=== PATIENT | female | born 1940 | race Hispanic/Latino ===

== ENCOUNTER 2018-09-19 00:32 | Emergency (ER) | payer OTHER ==
[2018-09-19 01:45] LABS: BASOPHILS % (AUTO) 0.7 % (0.0-5.0); EOSINOPHILS % (AUTO) 0.8 % (0.0-8.0); HEMATOCRIT 40.9 % (36-48); LYMPHOCYTES % (AUTO) 22.4 % (21.0-51.0); MEAN CORPUSCULAR HEMOGLOBIN 32.6 pg (27.0-33.0); MEAN CORPUSCULAR HGB CONC 34.4 g/dL (32.0-36.0); MEAN CORPUSCULAR VOLUME 94.9 fL (79-99); MONOCYTES % (AUTO) 7.8 % (3.0-13.0); NEUTROPHILS % (AUTO) 68.3 % (40.0-77.0); NUCLEATED RED BLOOD CELLS 0.1 % (0.0-0.19); PLATELET COUNT (AUTO) 212 K/uL (130-400); RED BLOOD CELL COUNT(AUTO) 4.32 MIL/uL (4.00-5.50); WHITE BLOOD COUNT (AUTO) 8.8 K/uL (4.8-10.8)
[2018-09-19 01:56] LABS: CREATININE 0.9 mg/dL (0.5-1.5); POTASSIUM 4.2 mmol/L (3.5-5.1)
[2018-09-19 02:01] LABS: ALBUMIN 3.8 g/dL (3.5-5.0); BILIRUBIN,TOTAL 0.6 mg/dL (0.2-1.0); TOTAL PROTEIN, SERUM 7.4 g/dL (6.0-8.3)
[2018-09-19 02:20] LABS: BILIRUBIN,URINE Negative (NEGATIVE); COLOR,URINE Yellow (YELLOW); GLUCOSE, URINE (UA) Negative (NEGATIVE); KETONES,URINE Negative (NEGATIVE); LEUKOCYTE ESTERASE ,URINE Negative (NEGATIVE); NITRATE,URINE Negative (NEGATIVE); OCCULT BLOOD,URINE Negative (NEGATIVE); PH,URINE 7.5 (5.0-8.0); PROTEIN,URINE Negative (NEGATIVE); UROBILINOGEN,URINE 0.2 mg/dL (0.2-1.0)
[2018-09-19 02:30] LABS: APPEARANCE,URINE CLEAR (CLEAR)
== END 2018-09-19 05:16 | disposition home or self-care (01) ==
LOC: EDH 00:32
DX: R11.0 Nausea (principal); E78.5 Hyperlipidemia, unspecified; I10 Essential (primary) hypertension
CPT/HCPCS: 36415; 74177; 80053; 81003; 82550; 83690; 84484; 85025; 93005

== ENCOUNTER → 2019-10-11 | Outpatient (CLI) | payer OTHER | END | disposition home or self-care (01) | LOC: SHCH 14:15 | PROVIDERS: ATTEND Internal Medicine Cardiovascular Disease | DX: I65.22 Occlusion and stenosis of left carotid artery (principal) | CPT/HCPCS: 93880 ==

== ENCOUNTER → 2019-10-14 | Outpatient (CLI) | payer OTHER ==
[~2019-10-14] MED LIST: REGADENOSON 0.4 MG/5 ML PF SYG IVP SCH
== END | disposition home or self-care (01) ==
LOC: SHCH 08:38
PROVIDERS: ATTEND Internal Medicine Cardiovascular Disease
DX: I10 Essential (primary) hypertension (principal); R07.9 Chest pain, unspecified
CPT/HCPCS: 78452; 93017; 96374; A9500 ×2; J2785

== ENCOUNTER → 2021-12-30 | Outpatient (CLI) | payer OTHER ==
[2021-12-30 12:51] LABS: BILIRUBIN,TOTAL 0.5 mg/dL (0.2-1.0); CREATININE 1.2 mg/dL (0.5-1.5); POTASSIUM 3.9 mmol/L (3.5-5.1)
[2021-12-30 12:52] LABS: ALBUMIN 3.5 g/dL (3.5-5.0); TOTAL PROTEIN, SERUM 6.6 g/dL (6.0-8.3)
== END | disposition home or self-care (01) ==
LOC: LAB 08:27
PROVIDERS: ATTEND Internal Medicine Cardiovascular Disease
DX: I10 Essential (primary) hypertension (principal); E78.5 Hyperlipidemia, unspecified; I25.10 Atherosclerotic heart disease of native coronary artery without angina pectoris
CPT/HCPCS: 36415; 80053; 80061

== ENCOUNTER 2024-12-18 09:18 | Emergency (ER) | payer OTHER ==
[~2024-12-18] VITALS: Ht 157.5 cm; Wt 54.0 kg
[~2024-12-18 09:18] MED LIST changes: +ATOR40TA69 PO; +CARV12.580 PO; +EZET10TA48 PO; +LISI40TA9 PO; -REGADENOSON 0.4 MG/5 ML PF SYG IVP SCH
--- NOTE | 2024-12-18 09:18 | NUR ---
TRAUMA LEVEL 2 Addendum: 12/18/24 at 1325 by EPIGLERGUE SEE PAPER DOCUMENTATION
--- NOTE | 2024-12-18 09:42 | ERN ---
General Chief Complaint: Multiple Trauma/Fall Stated Complaint: TRAUMA Time Seen by MD: 09:19 History of Present Illness Initial Comments 84-year-old female who presents for a fall. Brought in by EMS from home. According to EMS, the family heard the patient get up this morning and heard her fall in her room. They found her altered on arrival. EMS reports that the patient had decreased mentation on their arrival on signs of a head injury. Throughout the transport the patient is GCS is improved. On arrival here she has a GCS of 14, she has some blood/bruising to the right side of the head. She denies any complaints at this time but she is unsure what happened. She has stable vital signs. Allergies: Coded Allergies: No Known Drug Allergies (Verified Allergy, 10/12/12) Home Meds Reported Medications Latanoprost (Latanoprost) 0.005 % Drops, 1 DROP OP HS, ML 0 Refills 12/18/24 Carvedilol (Coreg) 12.5 Mg Tablet, 12.5 MG PO BID, TAB 07/05/24 Lisinopril (Lisinopril) 40 Mg Tablet, 1 TAB PO DAILY for 30 Days, #30 TAB 0 Refills 07/05/24 Discontinued Reported Medications Ezetimibe (Ezetimibe) 10 Mg Tablet, 10 MG PO AM, TAB 07/05/24 Discontinued Scripts Atorvastatin Calcium (LIPITOR) 40 Mg Tablet, 40 MG PO HS, #30 TAB 1 Refill Prov:FAUSTINO ARAUJO 07/06/24 Past Medical History Past Medical History: High Cholesterol, Hypertension Past Surgical History: Other Results Laboratory and Microbiology Lab and Micro Result Laboratory Tests Test 12/18/24 09:58 12/18/24 10:49 White Blood Count 8.7 K/uL (4.8-10.8) Red Blood Count 4.54 MIL/uL (4.00-5.50) Hemoglobin 14.6 g/dL (12.0-16.0) Hematocrit 43.7 % (36-48) Mean Corpuscular Volume 96.3 fL (79-99) Mean Corpuscular Hemoglobin 32.2 pg (27.0-33.0) Mean Corpuscular Hemoglobin Concent 33.4 g/dL (32.0-36.0) Red Cell Distribution Width 13.7 % (11.0-15.5) Platelet Count 161 K/uL (130-400) Mean Platelet Volume 11.8 fL (7.5-10.5) H Immature Granulocyte % (Auto) 0.3 % (0-1) Neutrophils (%) (Auto) 75.0 % (40.0-77.0) Lymphocytes (%) (Auto) 17.8 % (21.0-51.0) L Monocytes (%) (Auto) 5.5 % (3.0-13.0) Eosinophils (%) (Auto) 0.6 % (0.0-8.0) Basophils (%) (Auto) 0.8 % (0.0-5.0) Neutrophils # (Auto) 6.5 K/uL (1.8-7.7) Lymphocytes # (Auto) 1.6 K/uL (1.0-4.8) Monocytes # (Auto) 0.5 K/uL (0.1-1.0) Eosinophils # (Auto) 0.05 K/uL (0.00-0.70) Basophils # (Auto) 0.07 K/uL (0.00-0.20) Absolute Immature Granulocyte (auto 0.03 K/uL (0-1) Nucleated Red Blood Cells 0.0 % (0.0-0.19) Prothrombin Time 10.9 SEC (9.6-11.6) Prothromb Time International Ratio 1.03 (0.85-1.15) Activated Partial Thromboplast Time 22.5 SEC (26.3-35.5) L Sodium Level 132 mmol/L (136-145) L Potassium Level 4.6 mmol/L (3.5-5.1) Chloride Level 100 mmol/L (101-111) L Carbon Dioxide Level 25 mmol/L (21-32) Blood Urea Nitrogen 22 mg/dL (7-18) H Creatinine 1.1 mg/dL (0.5-1.0) H Glomerular Filtration Rate Calc 49 mL/min (>90) Random Glucose 374 mg/dL (70-105) H Total Calcium 9.4 mg/dL (8.5-10.1) Magnesium Level 2.00 mg/dL (1.80-2.40) Total Creatine Kinase 44 U/L (21-232) # Troponin I High Sensitivity 14.8 ng/L (4-50) Serum Alcohol < 3 mg/dL (0-10) Urine Color YELLOW (YELLOW) Urine Appearance CLOUDY (CLEAR) H Urine pH 7.5 (5.0-8.0) Urine Specific [place] 1.030 (1.001-1.031) Urine Protein TRACE mg/dL (NEGATIVE) H Urine Glucose (UA) >=1000 mg/dL (NEGATIVE) H Urine Ketones NEGATIVE mg/dL (NEGATIVE) Urine Occult Blood SMALL (NEGATIVE) H Urine Nitrate NEGATIVE (NEGATIVE) Urine Bilirubin NEGATIVE mg/dL (NEGATIVE) Urine Urobilinogen 0.2 mg/dL (0.2-1.0) Urine Leukocyte Esterase TRACE Demetria/uL (NEGATIVE) H Urine RBC 26-50 /HPF (0-1) H Urine WBC 26-50 /HPF (0-1) H Urine Squamous Epithelial Cells MANY /HPF (0-2) Urine Non-Squamous Epithelial Cells 2 /HPF (0-2) Urine Bacteria MANY /HPF (None Seen) Urine Yeast RARE /HPF (None Seen) Urine Opiates Screen NEGATIVE (NEGATIVE) Urine Barbiturates Screen NEGATIVE (NEGATIVE) Urine Phencyclidine Screen NEGATIVE (NEGATIVE) Urine Amphetamines Screen NEGATIVE (NEGATIVE) Urine Benzodiazepines Screen NEGATIVE (NEGATIVE) Urine Cocaine Screen NEGATIVE (NEGATIVE) Urine Marijuana (THC) Screen NEGATIVE (NEGATIVE) MDM CC: Fall at home, possible head injury Historian: Patient and EMS. Patient is a bit confused and providing an unreliable history. I gathered the history from the EMS and the patient's daughter at bedside. No limitations by social determinants of health Comorbidities include advanced age, dyslipidemia, hypertension, known liver mass Differential diagnosis includes fall, multisystem trauma, head injury, bleed, stroke, electrolyte abnormality, sepsis, other. Initial vital signs show hypertension, stable otherwise. Patient did come and has a trauma alert due to the altered mentation and head injury. Initial airway breathing circulation intact. Taken to the CT scanner. I independently interpreted the CT head without contrast in the CT cervical spine. No obvious fractures. I independently interpreted the CT chest abdomen and pelvis. There was no obvious trauma. On re-evaluation of the patient, a patient that appears to be having neurologic deficits. She appears to have luci-neglect to the right side. NIHSS of five. Moving both limbs. Answering questions appropriately but slow. No aphasia. Patient is not a TNK candidate because of the last known well time was bedtime last night over 12 hours ago. I started to coordinate transfer at 10:45 a.m.. Possibly a large vessel occlusion, I discussed case w/ [place]aly [place] [facility] will [place] patient there and get CTAs for further eval EKG: Sinus rhythm rate of 81 normal axis delayed R-wave progression intervals are stable no STEMI. Independently interpreted by me. The labs are stable. Coags stable. Electrolytes are stable. Glucose 374. Troponin CK normal. Alcohol negative. Treatment in ED: Hydralazine 20 mg for hypertension. Consultation: [facility] [place]aly, accepts patient. He'll get CTAs and consult neuro/neuro IR as needed. ED Course Orders Procedure Category Date Status Time Ct Head/Brain W/O CT 12/18/24 Resulted Contrast 09:21 Ct Cervical Spine W/O CT 12/18/24 Resulted Contrast 09:21 Ct Chest/Abd/Pelv CT 12/18/24 Resulted W/Conrast 09:21 Cardiac Panel LAB 12/18/24 Complete 09:30 Cbc With Differential LAB 12/18/24 Complete 09:30 Basic Metabolic Panel LAB 12/18/24 Complete 09:30 Magnesium LAB 12/18/24 Complete 09:30 Prothrombin Time With LAB 12/18/24 Complete INR 09:30 Partial LAB 12/18/24 Complete Thromboplastin Time 09:30 Urinalysis Profile LAB 12/18/24 Complete 09:30 Drug Screen Urine LAB 12/18/24 Complete 09:30 Alcohol, Blood LAB 12/18/24 Complete 09:30 Iohexol (Omnipaque) PHA 12/18/24 Complete 09:44 12 Lead Ekg Tracing- EKG 12/18/24 Logged Technical 09:48 Hydralazine 20mg Inj PHA 12/18/24 Complete (Apresoline 20mg In 11:00 Culture Urine YUNIEL 12/18/24 In Process 11:23 Iohexol (Omnipaque) PHA 12/18/24 Complete 11:29 Current Medications Medications (Trade) Dose Ordered Sig/Erinn Route PRN Reason Start Time Stop Time Status Last Admin Dose Admin Hydralazine HCl (APRESOLine 20MG INJ) 20 mg ONCE ONCE IV 12/18/24 11:00 12/18/24 11:01 DC 12/18/24 11:25 Iohexol (Omnipaque) 75 ml STK-MED ONCE IV 12/18/24 11:29 12/18/24 11:29 DC Iohexol (Omnipaque) 35,000 mg STK-MED ONCE IV 12/18/24 09:44 12/18/24 09:44 DC DX & DISP Disposition: Transfer Departure Impression: Primary Impression: Hypertension Additional Impressions: Fall at home, Stroke, Hyperglycemia Critical Time: 30 minutes (Critical Care Procedure NoteAuthorized and Performed by: meTotal critical care time: Approximately 36 minutesDue to a high probability of clinically significant, life threatening deterioration, the patient required my highest level of preparedness to intervene emergently and I personally spent this critical care time directly and personally managing the patient. This critical care time included obtaining a history; examining the patient; pulse oximetry; ordering and review of studies; arranging urgent treatment with development of a management plan; evaluation of patient's response to treatment; frequent reassessment; and, discussions with other providers.This critical care time was performed to assess and manage the high probability of imminent, life-threatening deterioration that could result in multi-organ failure. It was exclusive of separately billable procedures and treating other patients and teaching time.Please see MDM section and the rest of the note for further information on patient assessment and treatment.) Condition: Stable Referrals: CHELLE ZENG MD (PCP) MELISSA BARNETT DO December 18, 2024 09:42
[2024-12-18] MEDS ORDERED: IOHEXOL 350 MG/ML 100ML INFUS..BTL IV ONE (09:44)
--- NOTE | 2024-12-18 09:49 | HMCIMG ---
CT HEAD/BRAIN W/O CONTRAST HISTORY: Loss of consciousness COMPARISON: None TECHNIQUE: Multiple sequential axial images of the head were obtained from the base of the skull through vertex. Patient was not given contrast through intravenous route. FINDINGS: The ventricles and extraventricular CSF spaces are dilated consistent with cerebral atrophy. Nonspecific white matter changes seen. There is no midline shift, mass effect or herniation. No acute intracranial bleed is seen. Visualized portion of the paranasal sinuses are grossly within normal limits. IMPRESSION: 1. No acute intracranial bleed is seen. 2. Atrophy with white matter changes. CT was performed with one or more following dose reduction techniques: automated exposure control, adjustment of the mA and kv according to patient's size, or use of a iterative reconstruction technique.
--- NOTE | 2024-12-18 09:50 | HMCIMG ---
CT CERVICAL SPINE W/O CONTRAST HISTORY: Trauma COMPARISON: None TECHNIQUE: Multiple sequential axial images of the cervical spine were obtained including post processing sagittal and coronal reconstruction images. Patient was not given contrast through intravenous route. FINDINGS: There are degenerative changes with cervical spine spondylosis. Bone osteopenia is seen. There is straightening of normal lordotic cervical curvature which may be related to muscle spasm or positioning. There is no loss of vertebral height. Evaluation for disc and cord pathology is limited with CT study. No evidence of fracture or dislocation is seen. IMPRESSION: 1. No fracture is seen. DJD. CT was performed with one or more following dose reduction techniques: automated exposure control, adjustment of the mA and kv according to patient's size, or use of a iterative reconstruction technique.
[2024-12-18 10:07] LABS: BASOPHILS # (AUTO) 0.07 K/uL (0.00-0.20); BASOPHILS % (AUTO) 0.8 % (0.0-5.0); EOSINOPHILS # (AUTO) 0.05 K/uL (0.00-0.70); EOSINOPHILS % (AUTO) 0.6 % (0.0-8.0); HEMATOCRIT 43.7 % (36-48); IMMATURE GRANULOCYTE ABSOLUTE 0.03 K/uL (0-1); LYMPHOCYTES # (AUTO) 1.6 K/uL (1.0-4.8); LYMPHOCYTES % (AUTO) 17.8 % (21.0-51.0); MEAN CORPUSCULAR HEMOGLOBIN 32.2 pg (27.0-33.0); MEAN CORPUSCULAR HGB CONC 33.4 g/dL (32.0-36.0); MEAN CORPUSCULAR VOLUME 96.3 fL (79-99); MONOCYTES # (AUTO) 0.5 K/uL (0.1-1.0); MONOCYTES % (AUTO) 5.5 % (3.0-13.0); NEUTROPHILS # (AUTO) 6.5 K/uL (1.8-7.7); PLATELET COUNT (AUTO) 161 K/uL (130-400); RED BLOOD CELL COUNT(AUTO) 4.54 MIL/uL (4.00-5.50); RED CELL DISTRIBUTION WIDTH 13.7 % (11.0-15.5); WHITE BLOOD COUNT (AUTO) 8.7 K/uL (4.8-10.8)
[2024-12-18 10:16] LABS: CARBON DIOXIDE 25 mmol/L (21-32); CHLORIDE 100 mmol/L (101-111); CREATININE 1.1 mg/dL (0.5-1.0); GLOMERULAR FILTR. RATE CALC 49 mL/min (>90); GLUCOSE,RANDOM 374 mg/dL (70-105); POTASSIUM 4.6 mmol/L (3.5-5.1); SODIUM SERUM 132 mmol/L (136-145); UREA NITROGEN, BLOOD 22 mg/dL (7-18)
[2024-12-18 10:18] LABS: INR 1.03 (0.85-1.15); PROTHROMBIN TIME 10.9 SEC (9.6-11.6)
[2024-12-18 10:19] LABS: PARTIAL THROMBOPLASTIN TIME 22.5 SEC (26.3-35.5)
[2024-12-18 10:23] LABS: CREATINE KINASE, TOTAL 44 U/L (21-232)
--- NOTE | 2024-12-18 10:30 | HMCIMG ---
CT CHEST/ABD/PELV W/CONRAST HISTORY: Found on floor COMPARISON: None TECHNIQUE: Multiple sequential axial images of the chest were obtained from the thoracic inlet through upper abdomen. Patient was given 100 cc of Omnipaque through intravenous route. FINDINGS: There is no evidence of pulmonary nodule or parenchymal disease. There are interstitial fibrosis. Mild COPD changes are seen. No pleural effusion or pericardial effusion is seen. There is no evidence of pneumothorax. There are normal size mediastinal and hilar lymph nodes. The heart is not enlarged. Degenerative changes of the thoracolumbar spine are present. There is no evidence of adrenal nodule. IMPRESSION: 1. No evidence of pulmonary nodule or effusion is seen. CT CHEST/ABD/PELV W/CONRAST HISTORY: Found on floor COMPARISON: 07/06/2024 TECHNIQUE: Multiple sequential axial images of the abdomen and pelvis were obtained from the dome of the diaphragm through symphysis pubis. Patient was given 100 cc of Omnipaque through intravenous route. Oral contrast was not given. FINDINGS: Multiple liver masses are seen with the largest in the right hepatic lobe measuring 8.8 x 6.5 cm and second largest lateral segment of the left hepatic lobe measuring 5.1 x 4.2 cm. Findings are suggestive of neoplastic process. Gallstone is seen in the gallbladder. Spleen, adrenal glands and pancreas are unremarkable. There is no evidence of hydronephrosis bilaterally. There are parapelvic renal cysts No evidence of renal stone is seen. Fecal material is seen in the colon. There are normal size retroperitoneal and mesenteric lymph nodes. No ascites is seen. Atherosclerotic changes are present. There are motion artifacts degrading the image quality. There is diverticulosis. There is right inguinal hernia with bowel content. Pelvic sidewalls are symmetric bilaterally. Bladder is well distended without wall thickening. IMPRESSION: 1. Gallstone in the gallbladder. Multiple hepatic masses also seen on previous study suggestive of metastatic process. Diverticulosis. Fecal material in the colon. CT was performed with one or more following dose reduction techniques: automated exposure control, adjustment of the mA and kv according to patient's size, or use of a iterative reconstruction technique.
--- NOTE | 2024-12-18 10:30 | NUR ---
PT URANATED THE BED ACCIDENTALY.SHE IS CLEANED AND CHANGED INTO DRY CLOTHES. BEDSHEETS CHANGED WITH DAUGHTER AT BEDSIDE.
[2024-12-18 10:36] LABS: ALCOHOL, BLOOD < 3 mg/dL (0-10)
[2024-12-18 10:58] LABS: BILIRUBIN,URINE NEGATIVE (NEGATIVE); COLOR,URINE YELLOW (YELLOW); GLUCOSE, URINE (UA) >=1000 mg/dL (NEGATIVE); KETONES,URINE NEGATIVE (NEGATIVE); LEUKOCYTE ESTERASE ,URINE TRACE Leu/uL (NEGATIVE); NITRATE,URINE NEGATIVE (NEGATIVE); OCCULT BLOOD,URINE SMALL (NEGATIVE); PH,URINE 7.5 (5.0-8.0); PROTEIN,URINE TRACE mg/dL (NEGATIVE); UROBILINOGEN,URINE 0.2 mg/dL (0.2-1.0)
--- NOTE | 2024-12-18 11:03 | NUR ---
INITIATED TRANSFER VIA [facility] SPOKE TO [facility], REQUESTING NEURO/TELE, NIH-5, LKW 10PM YESTERDAY, DX: CVA, RIGHT HEMINEGLECT
[2024-12-18 11:05] LABS: ADD UA MICROSCOPIC YES
[2024-12-18 11:08] LABS: AMPHET/METH SCREEN,URINE NEGATIVE (NEGATIVE); BARBITURATE SCREEN, URINE NEGATIVE (NEGATIVE); BENZODIAZEPINES SCREEN,URINE NEGATIVE (NEGATIVE); CANNABINOID SCREEN,URINE NEGATIVE (NEGATIVE); COCAINE SCREEN,URINE NEGATIVE (NEGATIVE); OPIATE SCREEN,URINE NEGATIVE (NEGATIVE); PHENCYCLIDINE SCREEN,URINE NEGATIVE (NEGATIVE)
[2024-12-18 11:19] LABS: BACTERIA,URINE MANY /HPF (None Seen); MUCUS,URINE RARE LPF (None Seen); NON-SQUAMOUS EPITHELIAL CELL 2 /HPF (0-2); RBC,URINE 26-50 /HPF (0-1); SQUAMOUS EPITHELIAL CELL,UR MANY /HPF (0-2); WBC,URINE 26-50 /HPF (0-1); YEAST,URINE BUDDING RARE /HPF (None Seen)
[2024-12-18 11:21] LABS: APPEARANCE,URINE CLOUDY (CLEAR)
[2024-12-18] MEDS ORDERED: LATA2.5D14 OP (11:25)
[2024-12-18] MEDS: hydrALAZine 20MG/ML VIAL IV ONE (11:25)
--- NOTE | 2024-12-18 11:27 | NUR ---
TRANSFER: RECEIVED CALL FROM [facility]; PATIENT ACCEPTED TO [facility] ER TO ER; DR. LEAH THURMAN.
[2024-12-18] MEDS ORDERED: IOHEXOL-350 75 ML VIAL IV ONE (11:29)
--- NOTE | 2024-12-18 11:40 | NUR ---
PT VOMITED. BEDSHEETS AND GOWN CHANGED.
--- NOTE | 2024-12-18 11:46 | NUR ---
REPORT GIVEN TO JESSICA KINGSLEY AT [facility]
--- NOTE | 2024-12-18 11:48 | NUR ---
TRANSPORT: CALL PLACED TO [facility] FOR TRANSPORT TO [facility].
--- NOTE | 2024-12-18 11:55 | EKG ---
[facility] Test Date: 2024-12-18 Test Time: 10:29:27 Pat Name: JIMMIE COLLINS Department: ED Room: Gender: Female [place] Operator: [id number] : 1940 Requested By: MELISSA BARNETT Order Number: [id number] Reading MD: Measurements Intervals Independence Rate: 81 P: 62 AR: 163 QRS: 43 QRSD: 74 T: 91 QT: 395 QTc: 460 Interpretive Statements Sinus rhythm Nonspecific T abnrm, anterolateral leads No previous ECG available for comparison Please click the below link to view image of tracing.
[2024-12-18 12:00] VITALS: BP 134/55; PULSE 96; RESP 18; TEMP 98; O2SAT 96
--- NOTE | 2024-12-18 12:20 | NUR ---
REPORT GIVEN TO [facility].
--- NOTE | 2024-12-18 12:25 | NUR ---
PT LEFT WITH EMS.
== END 2024-12-18 12:30 | disposition short-term general hospital (02) ==
LOC: EDH 09:18
DX: S00.93XA Contusion of unspecified part of head, initial encounter (principal); I10 Essential (primary) hypertension; I63.9 Cerebral infarction, unspecified; E78.00 Pure hypercholesterolemia, unspecified; Z79.899 Other long term (current) drug therapy; W18.39XA Other fall on same level, initial encounter; Y93.89 Activity, other specified; Y92.89 Other specified places as the place of occurrence of the external cause; Y99.8 Other external cause status
CPT/HCPCS: 99291; 70450; 96374; 82550; 83735; 84484; 80048; 80305; 85025; 85610; 85730; 87086; 36415; 72125; 71260; 74177; 93005; 81001; J0360; Q9967

== ENCOUNTER 2025-04-22 19:41 | Emergency (ER) | payer OTHER ==
[~2025-04-22] VITALS: Ht 152.4 cm; Wt 68.0 kg
[~2025-04-22 19:41] MED LIST changes: -ATOR40TA69 PO; -EZET10TA48 PO; +LATA2.5D7 OP; +LISI40TA15 PO; -LISI40TA9 PO
[2025-04-22] MEDS ORDERED: AMLO2.5T4 PO (20:06)
[2025-04-22] MEDS ORDERED: FISH12002 PO (20:06)
[2025-04-22] MEDS ORDERED: METF-444 PO (20:06)
[2025-04-22] MEDS ORDERED: ASPI-1443 PO (20:06)
[2025-04-22] MEDS ORDERED: CHOL500045 PO (20:06)
[2025-04-22] MEDS ORDERED: EZET10TA80 PO (20:06)
[2025-04-22] MEDS ORDERED: ASCO-515 PO (20:06)
--- NOTE | 2025-04-22 20:09 | ERN ---
General Chief Complaint: Lower Extremity Pain/Injury Stated Complaint: RIGHT LEG PAIN Time Seen by MD: 19:42 Source: patient History of Present Illness Initial Comments Patient is a an 85-year-old female coming in complaining of right hip pain. The pain has been ongoing for one week. The pain is present all day but is exacerbated with movement. Allergies: Coded Allergies: No Known Drug Allergies (Verified Allergy, 10/12/12) Home Meds Reported Medications Ascorbic Acid (Vitamin C) 250 Mg Tablet, 1 TAB PO DAILY for 30 Days, #30 TAB 0 Refills 04/22/25 Fish Oil/Borage/Flax/Om3,6,9#1 ([place] 3-6-9 1,200 mg Softgel) 1,200 Mg Capsule, 2 CAP PO DAILY for 30 Days, #30 CAP 0 Refills 04/22/25 Aspirin (Aspirin EC) 81 Mg Tablet.dr, 1 TAB PO DAILY for 30 Days, #30 TAB 0 Refills 04/22/25 Cholecalciferol (Vitamin D3) (Vitamin D3) 125 Mcg (5000 Unit) Tablet, 1 TAB PO DAILY for 30 Days, #30 TAB 0 Refills 04/22/25 Metformin HCl (Metformin HCl) 500 Mg Tablet, 1 TAB PO BID for 30 Days, #60 TAB 0 Refills 04/22/25 Ezetimibe (Ezetimibe) 10 Mg Tablet, 1 TAB PO DAILY for 30 Days, #30 TAB 0 Refills 04/22/25 Amlodipine Besylate (Amlodipine Besylate) 2.5 Mg Tablet, 1 TAB PO DAILY for 30 Days, #30 TAB 0 Refills 04/22/25 Latanoprost (Latanoprost) 0.005 % Drops, 1 DROP OP HS, ML 0 Refills 12/18/24 Carvedilol (Coreg) 12.5 Mg Tablet, 12.5 MG PO BID, TAB 07/05/24 Lisinopril (Lisinopril) 40 Mg Tablet, 1 TAB PO DAILY for 30 Days, #30 TAB 0 Refills 07/05/24 Past Medical History Past Medical History: CAD, Diabetes-Type II, Hypertension Past Surgical History: Surgical History Other: LEFT ANKLE ROS Dictation CONSTITUTIONAL: No chills, no fever, no weakness, no diaphoresis, no malaise. HEAD/FACE: No signs of trauma. EENT: No eye pain, no blurred vision, no tearing, no double vision, no ear pain, no ear discharge, no nose pain, no nasal congestion, no throat pain, no throat swelling, no mouth pain. RESPIRATORY: No cough, no orthopnea, no SOB, no stridor, no wheezing. CARDIOVASCULAR: No chest pain, no edema, no palpitations, no syncope. GASTROINTESTINAL/ABDOMINAL: No abdominal pain, no constipation, no diarrhea, no nausea, no vomiting. GENITOURINARY: No abnormal discharge, no dysuria, no frequent urination, no hematuria. No complaints of pain in the genitals. MUSCULOSKELETAL: No back pain, no gout, no joint pain, no joint swelling, no muscle pain, no muscle stiffness, no neck pain. INTEGUMENTARY: No change in color, no change in hair/nails, no dryness, no lesion, no lumps, no rash. NEUROLOGICAL/PSYCH: No anxiety, not depressed, no emotional problem, no headache, no numbness, no pre-existing deficit, no history of seizures, no tremors, no weakness. HEMATOLOGIC/LYMPHATIC: Not anemic, no history of blood clots, no apparent bleeding, no bruising, glands not swollen. All Systems Negative, Except as Noted. Physical Exam Physical Exam Dictation VITAL SIGNS: Reviewed. GENERAL APPEARANCE: Alert, oriented x3, no acute distress, obese. HEAD AND FACE: Non-traumatic. EYES: PERRL, pink conjunctivas, eyelid no trauma, anterior chamber clear. EARS: Pinnas intact and no signs of trauma or erythema. Ear canals clear and no discharge. TMs no erythema. NOSE: No discharge, no bleeding. OROPHARYNX: Mouth normal, teeth no caries, tongue pink. Pharynx clear, no erythema. Tonsils no exudates, no abscesses noted. Mucous membrane moist. NECK: Supple, non-tender, no thyromegaly, no masses, no JVD, no bruits. BREAST: Deferred. CHEST: No tenderness, no crepitus, no paradoxical movement, no retractions. LUNGS: Clear, well-ventilated, symmetric, no rales, no wheezing, no rhonchi, no stridor, good breath sounds bilaterally. HEART: Regular rate, regular rhythm, no murmur, no gallops. VASCULAR: No peripheral edema. ABDOMEN: Soft, positive bowel sounds, nondistended, no guarding, nontender, no rebound, no masses no hepatomegaly, no splenomegaly, no Abbott's sign, no hernias. RECTAL: Deferred. GENITAL: Deferred. NEUROLOGICAL: Normal speech, gross motor function intact, gross sensory function intact. MUSCULOSKELETAL: Neck nontender, full range of motion, back nontender, full range of motion. EXTREMITIES: Nontender, full range of motion. SKIN: Color pink, dry, no turgor, no rash, no lacerations, no abrasions, no contusions. LYMPHATICS: Deferred. Results Laboratory and Microbiology Lab and Micro Result Laboratory Tests Test 04/22/25 22:34 White Blood Count 9.5 K/uL (4.8-10.8) Red Blood Count 4.18 MIL/uL (4.00-5.50) Hemoglobin 13.7 g/dL (12.0-16.0) Hematocrit 40.1 % (36-48) Mean Corpuscular Volume 95.9 fL (79-99) Mean Corpuscular Hemoglobin 32.8 pg (27.0-33.0) Mean Corpuscular Hemoglobin Concent 34.2 g/dL (32.0-36.0) Red Cell Distribution Width 13.3 % (11.0-15.5) Platelet Count 196 K/uL (130-400) Mean Platelet Volume 10.9 fL (7.5-10.5) H Immature Granulocyte % (Auto) 0.3 % (0-1) Neutrophils (%) (Auto) 70.6 % (40.0-77.0) Lymphocytes (%) (Auto) 21.2 % (21.0-51.0) Monocytes (%) (Auto) 6.4 % (3.0-13.0) Eosinophils (%) (Auto) 0.9 % (0.0-8.0) Basophils (%) (Auto) 0.6 % (0.0-5.0) Neutrophils # (Auto) 6.7 K/uL (1.8-7.7) Lymphocytes # (Auto) 2.0 K/uL (1.0-4.8) Monocytes # (Auto) 0.6 K/uL (0.1-1.0) Eosinophils # (Auto) 0.09 K/uL (0.00-0.70) Basophils # (Auto) 0.06 K/uL (0.00-0.20) Absolute Immature Granulocyte (auto 0.03 K/uL (0-1) Nucleated Red Blood Cells 0.0 % (0.0-0.19) Sodium Level 138 mmol/L (136-145) Potassium Level 4.2 mmol/L (3.5-5.1) Chloride Level 101 mmol/L (101-111) Carbon Dioxide Level 27 mmol/L (21-32) Blood Urea Nitrogen 32 mg/dL (7-18) H Creatinine 0.8 mg/dL (0.5-1.0) Glomerular Filtration Rate Calc 72 mL/min (>90) Random Glucose 147 mg/dL (70-105) H Total Calcium 10.2 mg/dL (8.5-10.1) H Total Creatine Kinase 209 U/L (21-232) # Labs Reviewed?: Yes EKG/XRAY/US/CT/MRI X-RAY Comment X-ray right tib-fib-NAD IMAGING REPORT Signed PATIENT: JIMMIE COLLINS MR#: [id number] : 1940 SEX: F AGE: 85 LOCATION: [facility] ORDER 54 STATUS: [facility] ER REPORT#: [id number] SERVICE 53 REASON: pain ORDERING PHYSICIAN: VANCE MARTINEZ MD PROCEDURE: HIP U 2V R - HIP UNILAT 2-3VW RIGHT EXAM: CR right Hip, 3 View. CLINICAL HISTORY: pain COMPARISON: None provided. FINDINGS: BONES: No acute fracture or aggressive appearing osseous lesion. JOINTS: No dislocation. The joint spaces are normal. SOFT TISSUES: The soft tissues are unremarkable. IMPRESSION: No acute osseous abnormality. /[place] DICTATED BY: PETRA ABDALLA MD DATE: 04/22/252145 ELECTRONICALLY SIGNED BY: PETRA ABDALLA MD DATE: 04/22/252145 MDM MDM: Differential diagnosis: Right hip pain, right hip strain, chronic hip pain, right leg strain Rationale: Tests considered and ordered secondary to shared decision making include: Previous outside records reviewed: Old ER visits. Risk of complication and/or morbidity or mortality of patient management: None Medications-Per medication reconciliation Need for hospitalization: Patient does not meet criteria for hospitalization. Need for emergency major/minor surgery: No Patient is a an 85-year-old female coming in complaining of right leg pain. Per daughter at bedside patient was initially complaining of lower extremity pain that has a swelling to the right tib-fib area. Daughter was concerned that the patient might have a clot ultrasound was performed as well and x-ray of the hip no acute findings were present. Patient will be discharged in stable condition with a diagnosis of right lower extremity contusion as well as right leg strain. ED Course Orders Procedure Category Date Status Time Orphenadrine Citrate PHA 04/22/25 Complete (Norflex) 20:00 Hip Unilat 2-3vw Right RAD 04/22/25 Resulted 19:54 Triamcinolone Acet PHA 04/22/25 Complete 40mg/Ml 1ml (Kenalog 21:30 Tramadol Hcl (Ultram) PHA 04/22/25 Complete 22:00 Tibia/Fibula 2vws Rt RAD 04/22/25 Resulted 22:10 Us Venous Doppler US 04/22/25 Resulted Unilateral 22:10 Clonidine Hcl 0.1 Mg PHA 04/22/25 Complete Tablet (Catapres 0. 22:30 Cbc With Differential LAB 04/22/25 Complete 22:11 Basic Metabolic Panel LAB 04/22/25 Complete 22:11 Creatine Kinase, Total LAB 04/22/25 Complete 22:11 12 Lead Ekg Tracing- EKG 04/22/25 Complete Technical 22:11 Current Medications Medications (Trade) Dose Ordered Sig/Erinn Route PRN Reason Start Time Stop Time Status Last Admin Dose Admin Clonidine HCl (CATApres 0.1 mg TAB) 0.1 mg ONCE ONCE PO 04/22/25 22:30 04/22/25 22:31 DC 04/22/25 22:16 Orphenadrine Citrate (Norflex) 60 mg ONCE ONCE IM 04/22/25 20:00 04/22/25 20:01 DC 04/22/25 20:14 Tramadol HCl (UltRAM) 50 mg ONCE ONCE PO 04/22/25 22:00 04/22/25 22:01 DC 04/22/25 21:58 Triamcinolone Acetonide (Kenalog 40) 40 mg ONCE ONCE IM 04/22/25 21:30 04/22/25 21:31 DC 04/22/25 21:50 Vital Signs Date Time Temp Pulse Resp B/P (MAP) Pulse Ox O2 Delivery O2 Flow Rate FiO2 04/22/25 22:16 78 04/22/25 22:09 98.8 75 18 202/65 98 Room Air* 0 21 04/22/25 20:14 98.8 75 18 125/66 99 Room Air* 0 21 04/22/25 19:51 98.1 83 16 195/83 98 Room Air 0 DX & DISP Disposition: Discharge Departure Impression: Primary Impression: Chronic hip pain Additional Impressions: Contusion of right lower extremity, Strain of right quadriceps Condition: Stable Scripts Lidocaine (Lidocaine Pain Relief) 4 % Adh..patch 1 PATCH TP DAILY for 5 Days, #7 PATCH 0 Refills Prov: VANCE MARTINEZ MD 04/23/25 Additional Instructions: FOLLOW-UP WITH PRIMARY CARE PROVIDER IN 1 TO 2 DAYS. TAKE MEDICATIONS DIRECTED HERE IN THE EMERGENCY ROOM. OKAY TO CONTINUE HOME MEDICATIONS UNLESS OTHERWISE DISCUSSED DURING YOUR VISIT IN THE EMERGENCY ROOM TODAY. RETURN TO YOUR NEAREST EMERGENCY ROOM IF SYMPTOMS WORSEN OR IF THERE IS NO IMPROVEMENT. CALL 911 IF YOU NEED IMMEDIATE ASSISTANCE. TAKE TYLENOL [id number]-[id number]-RYCBULM NEEDED AND IF NO CONTRAINDICATIONS ARE PRESENT. INCREASE ORAL HYDRATION. A WOUND CULTURE OR URINE CULTURE WAS ORDERED HERE IN THE EMERGENCY ROOM DEPARTMENT PLEASE FOLLOW-UP WITH PRIMARY CARE PROVIDER AND ADVISE THEM TO GET REPORTS FROM OUR FACILITY. IF YOU HAD ANY DORA WRAP/SPLINTS THAT WERE APPLIED HERE, PLEASE DO NOT REMOVE THEM UNTIL YOU SEE YOUR PRIMARY CARE OR SPECIALTY. Referrals: Referrals: CHELLE ZENG MD (PCP) SHELBY MORRIS MD Time of Disposition: 00:18 VANCE MARTINEZ MD Apr 22, 2025 20:09
[2025-04-22] MEDS: ORPHENADRINE 60MG/2ML IM ONE (20:14)
--- NOTE | 2025-04-22 20:46 | HMCIMG ---
EXAM: CR right Hip, 3 View. CLINICAL HISTORY: pain COMPARISON: None provided. FINDINGS: BONES: No acute fracture or aggressive appearing osseous lesion. JOINTS: No dislocation. The joint spaces are normal. SOFT TISSUES: The soft tissues are unremarkable. IMPRESSION: No acute osseous abnormality. /[place]
[2025-04-22] MEDS: TRIAMCINOLONE ACETONIDE 40 MG/ML 1ML VIAL IM ONE (21:50)
[2025-04-22 22:39] LABS: IMMATURE GRANULOCYTE ABSOLUTE 0.03 K/uL (0-1); NUCLEATED RED BLOOD CELLS 0.0 % (0.0-0.19); PLATELET COUNT (AUTO) 196 K/uL (130-400); RED BLOOD CELL COUNT(AUTO) 4.18 MIL/uL (4.00-5.50); RED CELL DISTRIBUTION WIDTH 13.3 % (11.0-15.5); WHITE BLOOD COUNT (AUTO) 9.5 K/uL (4.8-10.8)
[2025-04-22 22:47] LABS: CREATININE 0.8 mg/dL (0.5-1.0); GLOMERULAR FILTR. RATE CALC 72.0 mL/min (>90); GLUCOSE,RANDOM 147.0 mg/dL (70-105); SODIUM SERUM 138.0 mmol/L (136-145); UREA NITROGEN, BLOOD 32.0 mg/dL (7-18)
[2025-04-22 22:52] LABS: CREATINE KINASE, TOTAL 209.0 U/L (21-232)
--- NOTE | 2025-04-22 23:30 | EKG ---
[facility] Test Date: 2025-04-22 Test Time: 22:17:00 Pat Name: JIMMIE COLLINS Department: ED Room: Gender: F Community Engagement Manager: [id number] : 1940 Requested By: VANCE MARTINEZ Order Number: [id number] Reading MD: He Alvarado Measurements Intervals [place] Rate: 76 P: 42 MN: 152 QRS: 9 QRSD: 82 T: 91 QT: 392 QTc: 440 Interpretive Statements Sinus rhythm LVH with secondary repolarization abnormality Compared to ECG 12/18/2024 10:29:27 Left ventricular hypertrophy now present Early repolarization now present Electronically Signed On 04-23-2025 21:31:20 CDT by He Alvarado Please click the below link to view image of tracing.
--- NOTE | 2025-04-22 23:56 | HMCIMG ---
EXAM: CR Right Tibia and Fibula, 4 views. CLINICAL HISTORY: Lower extremity pain. COMPARISON: None provided. FINDINGS: No acute fracture or aggressive appearing osseous lesion. Mild osteopenia. 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 Atherosclerotic vascular calcifications. Large plantar calcaneal enthesophyte. IMPRESSION: No acute bony abnormality is evident. Mild osteopenia and degenerative changes. /[place]
--- NOTE | 2025-04-23 00:11 | HMCIMG ---
EXAM: US Right Lower Extremity Veins CLINICAL HISTORY: Leg pain. TECHNIQUE: Real-time ultrasound scan of the veins of the right lower extremity with color Doppler flow, spectral waveform analysis, and compression. COMPARISON: None provided. FINDINGS: The common femoral, superficial femoral, and popliteal veins are echolucent and compressible, demonstrating normal color flow and augmentation on Doppler evaluation. No venous thrombosis in the right leg. The soft tissues are grossly unremarkable. IMPRESSION: Negative for right lower extremity deep venous thrombosis. /[place]
[2025-04-23 00:16] VITALS: BP 125/60; PULSE 72; RESP 18; TEMP 98.8; O2SAT 98
[2025-04-23] MEDS ORDERED: LIDO1ADH71 TP (00:19)
== END 2025-04-23 00:24 | disposition home or self-care (01) ==
LOC: EDH 19:41
DX: S76.111A Strain of right quadriceps muscle, fascia and tendon, initial encounter (principal); S80.11XA Contusion of right lower leg, initial encounter; G89.29 Other chronic pain; M25.551 Pain in right hip; M79.604 Pain in right leg; E11.9 Type 2 diabetes mellitus without complications; I10 Essential (primary) hypertension; I25.10 Atherosclerotic heart disease of native coronary artery without angina pectoris; Z79.82 Long term (current) use of aspirin; Z79.84 Long term (current) use of oral hypoglycemic drugs; Z79.899 Other long term (current) drug therapy; X58.XXXA Exposure to other specified factors, initial encounter; Y93.89 Activity, other specified; Y92.89 Other specified places as the place of occurrence of the external cause; Y99.8 Other external cause status
CPT/HCPCS: 99285; 93971; 82550; 80048; 85025; 36415; 73502; 73590; 96372 ×2; 93005; J3301; J2360